=== PATIENT | male | born 1955 | race Caucasian/White ===

== ENCOUNTER → 2022-02-07 17:31 | Outpatient (CLI) | payer MEDICARE, SELFPAY ==
--- NOTE | ~2022-02-07 | XR_ITS ---
EXAM: XR abdomen/kub 1V DATE: 02/07/2022 17:42 HISTORY: R31.9 - Hematuria, unspecified . COMPARISON: None available. FINDINGS: Normal bowel gas pattern. No organomegaly. Multiple bladder calculi. Degenerative lumbar a nd bilateral hip change. IMPRESSION: Multiple bladder calculi. Reviewed, dictated and finalized at location K. IMPRESSION: Multiple bladder calculi.
== END ==
PROVIDERS: PCP Family Medicine; Visit Provider Family Medicine
DX: R31.9 Hematuria, unspecified (principal)
CPT/HCPCS: 74018

== ENCOUNTER 2022-02-16 13:26 | Outpatient (CLI) | payer MEDICARE, SELFPAY ==
--- NOTE | ~2022-02-16 | XR_ITS ---
EXAM: XR abdomen/kub 1V DATE: 02/16/2022 13:43 HISTORY: GROSS HEMATURIA . COMPARISON: 02/07/2022. FINDINGS: Clear lung bases. Normal bowel gas pattern. No organomegaly. Multiple bladder calculi, per haps slightly reduced in number. Regional bones and soft tissues normal for age. IMPRESSION: Multiple bladder calculi. Reviewed, dictated and finalized at location K. IMPRESSION: Multiple bladder calculi.
--- NOTE | ~2022-02-16 | CT_ITS ---
EXAMINATION: CT abdomen pelvis wo/w con DATE: 02/16/2022 14:06 INDICATION: Gross hematuria EXAMINATION: CT abdomen pelvis wo/w con DATE: 02/16/2022 14:06 INDICATION: Gross hematuria TECHNIQUE: Computed tomography (CT) of the abdomen and pelvis was performed without intravenous contr ast. CT of the abdomen and pelvis was then performed with a total of 130 mL Omnipaque-350 intravenous contrast using a double-bolus technique for simultaneous opacification of the renal parenchyma and r enal collecting system. Automated exposure control and iterative reconstruction technique were employ ed. The dose-length product was 1969.14 mGy-cm. COMPARISON: None FINDINGS: CT UROGRAM: Lung bases are clear. Heart size is normal. No pericardial or pleural effusion. Liver, gallbladder, s pleen, pancreas and bilateral adrenal glands are normal. 10 cm Bosniak 2 cyst with single thin undergraduate internship al septation and minimal peripheral rim calcification. A couple additional subcentimeter right renal cyst. Small region of cortical scarring at the interpolar region of the right kidney. Approximately 1 7 stones within the bladder measuring 6-10 mm. There is diffuse wall thickening of the partially deco mpressed bladder. No stones in either kidney or ureter. Prostatomegaly measuring 5.3 x 4.5 cm. A coup le sigmoid diverticula without adjacent inflammatory change to suggest diverticulitis. Small bowel an d appendix are normal. No free intraperitoneal gas or fluid. No pathologically enlarged abdominal or pelvic lymphadenopathy. Mild right and mild to moderate left hip osteoarthritis. Mild to moderate lum bar or thoracic spondylosis. IMPRESSION: 1. Multiple bladder stones. No more proximal ureterolithiasis of the kidneys or ureters. 2. Diffuse bladder wall thickening which could be related to either cystitis or chronic outlet obstru ction from the enlarged prostate. Reviewed, dictated and finalized at location B. IMPRESSION: 1. Multiple bladder stones. No more proximal ureterolithiasis of the kidneys or ureters. 2. Diffuse bladder wall thickening which could be related to either cystitis or chronic outlet obstruction from the enlarged prostate.
[2022-02-16 13:52] LABS: Estimated Glomerular Filt Rate > 60
== END 2022-02-16 13:27 | disposition home or self-care (01) ==
PROVIDERS: PCP Family Medicine; Visit Provider Nurse Practitioner Adult Health
DX: R31.0 Gross hematuria (principal); N21.0 Calculus in bladder
CPT/HCPCS: 74018; 74178; Q9967

== ENCOUNTER 2022-03-14 07:38 | Outpatient (CLI) | payer MEDICARE, SELFPAY ==
--- NOTE | 2022-03-14 07:46 | ECG_ITS ---
Measurements Intervals [place] Rate: 77 P: 31 [place]: 178 QRS: 9 QRSD: 89 T: 8 QT: 351 QTc: 399 Interpretive Statements SINUS RHYTHM BASELINE ARTIFACT- I, II, III, AVR, AVL, AVF NORMAL ECG Electronically Signed On 03-14-2022 9:17:06 CDT by Demetri Martinez D.O.
== END 2022-03-14 07:39 | disposition home or self-care (01) ==
PROVIDERS: PCP Family Medicine; Visit Provider Urology
DX: I10 Essential (primary) hypertension (principal); Z01.818 Encounter for other preprocedural examination
CPT/HCPCS: 93005

== ENCOUNTER 2022-03-17 01:53 | Day surgery (SDC) | payer MEDICARE, SELFPAY ==
[2022-03-10 15:01] VITALS: BMI 28.1
--- NOTE | 2022-03-10 15:11 | PC.NURSE ---
Report to the Outpatient Waiting Room, entrance under the green pavilion located off [facility], at time _0815_ on date _03/17/22_. OR Time: _1015_. - You and your visitor will be asked a series of questions to screen for COVID 19 for your protection. - Only one visitor is allowed at this time. - The patient visitor is requested to leave or wait in car when not with patient. - A mask is required within the hospital. Patients may have clear liquids (water, carbonated beverages, clear teas, apple juice) until 3 hours prior to surgery (0715 AM) with a maximum of 20 ounces. - No food from midnight until time of surgery Take the following medications with a SIP of water the morning of surgery: _NONE_ Medications to discontinue per physician __N/A_, Date to take last dose Please no make-up, nail czech, hairspray, perfume, deodorant, or body powder the day of surgery. No jewelry (including any body piercings) or valuables the day of surgery, leave them at home. Please take a shower or bath the night before, or the morning of, surgery with an antibacterial soap. Wear comfortable, loose fitting clothing. - Jewelry must be removed prior to entering the operating room. Rings and piercings that are not removed may be cut off. - The hospital will not accept responsibility for valuables. - Please leave all valuables, including medications, at home the day of surgery. If you are going home after surgery, a licensed funeral driver must drive you home. - NO public transportation without another adult. - We recommend that an adult stay with you for 24 hours following discharge. - We also recommend that you do not drive, make important decision, drink alcoholic beverages, or take any drugs that were not prescribed by your health care provider for at least 24 hours after your discharge time. Follow any additional instructions given to you from your surgeon. If you or anyone in your household have experienced Covid symptoms in the past week, please notify your surgeon or the nurse liaison at the phone number below for possible testing. Telephone instructions given to PT and asked if any additional questions and then verbalized understanding. Patient advised to call surgeon office or pre surgery nurse liaison [phone] if any additional questions.
--- NOTE | 2022-03-14 07:07 | PM.HPGS ---
History of Present Illness History of Present Illness Consent: Risks, benefits, and alternatives have been discussed and questions answered. Patient agrees to proceed with procedure. Chief complaint: Bladder Stones Narrative: Raymond Ch II is a 66 year old male recently underwent evaluation for gross hematuria. CT scan of the abdomen and pelvis with without contrast showed normal upper urinary tracts but multiple calculi in his bladder. He has been started on combination therapy for BPH and elects for cystoscopy with laser lithotripsy and bladder stone extraction. He is aware the risk of this procedure including, but not limited to, adverse cardiopulmonary events, hematuria, bladder injury and need for repeat procedures. Review of Systems Cardiovascular: Cardiovascular: Denies chest pain, Denies lightheadedness, Denies palpitations and Denies dyspnea Respiratory: Respiratory: Denies dyspnea Gastrointestinal: Gastrointestinal: Denies diarrhea, Denies nausea and Denies vomiting Genitourinary: Genitourinary: Denies hematuria and Denies dysuria Endocrine: Endocrine: Denies palpitations [facility] Past Medical History Medical History (Updated 03/14/22 @ 07:08 by Estuardo Xie MD) Elevated glucose Hepatitis C antibody test negative (~10/2016) Prediabetes Family History Family History Mother Father Patient's father is , Onset Age: 90 Social History Social History (Updated 11/24/21 @ 08:42 by Ree Macario [facility]) Smoking status: Never smoker Second hand tobacco smoke exposure: No Alcohol intake: current Drinks per week: 2 Substance use: never Substance use type: does not use Spiritual care concerns: No Meds Home Medications and Allergies Home Medications Medication Instructions Recorded Confirmed Type lisinopril 10 mg tablet See Rx Instructions .Route 10/04/21 03/10/22 Rx .COMPLEX #90 tabs tamsulosin 0.4 mg capsule 0.4 mg PO QHS #90 caps 12/24/21 03/10/22 Rx simvastatin 5 mg tablet See Rx Instructions .Route 01/17/22 03/10/22 Rx .COMPLEX #90 tabs finasteride 5 mg tablet 1 tablet HS 03/10/22 03/10/22 History Allergies Allergy/AdvReac Type Severity Reaction Status Date / Time No Known Allergies Allergy Verified 03/10/22 15:00 Exam Const: General: no acute distress Resp: Effort & Inspection: normal respiratory effort GI: Inspection: non-distended GI Palp: No abdominal tenderness and No Guarding due to palpation present (GI) Auscultation: normal bowel sounds Assessment and Plan Assessment and plan (1) Hematuria: Code(s): R31.9 - Hematuria, unspecified Status: Acute (2) Bladder stones: Code(s): N21.0 - Calculus in bladder Status: Acute Assessment and Plan: Cystoscopy, laser lithotripsy with extraction of multiple bladder calculi
[2022-03-17] VITALS (8 sets, daily range): BP systolic 128–164; BP diastolic 75–86; PULSE 66–76; RESP 11–20; TEMP 36.1–36.3; O2SAT 95–100
--- NOTE | 2022-03-17 06:41 | WPDHPUPDATE1 ---
History and Physical Update Update Date/Time: 03/17/22 06:41 History and Physical has been reviewed, including an updated exam of the patient. There are NO changes in the patient's condition. Risks, benefits, and alternatives have been discussed and questions answered. Patient agrees to proceed with procedure.
[2022-03-17] MEDS: LACTATED RINGERS 1,000 ML 30 ML IV CONT (08:48)
--- NOTE | 2022-03-17 09:24 | P.PNAN_ITS ---
Anes - Initial Pre Proc Eval Procedure: Operation Date: 03/17/22 10:15 Proposed Procedures p Cystolitholapaxy - Estuardo Xie MD Date/Time: 03/17/22 09:24 Surgeon: Estuardo Xie MD Pre Op Diagnosis: Bladder Stones Patient Data Age: 66 Gender: M Height: 1.78 m Weight: 89.7 kg Last Vital Signs Temp 36.3 C L 03/17/22 08:21 Pulse 73 03/17/22 08:21 Resp 18 03/17/22 08:21 BP 164/83 H 03/17/22 08:21 Pulse Ox 100 03/17/22 08:21 O2 Del Method Room Air 03/17/22 08:21 Allergies Allergy/AdvReac Type Severity Reaction Status Date / Time No Known Allergies Allergy Verified 03/17/22 08:31 Home Medications Medication Instructions Recorded Confirmed Type lisinopril 10 mg tablet See Rx Instructions .Route 10/04/21 03/17/22 Rx .COMPLEX #90 tabs tamsulosin 0.4 mg capsule 0.4 mg PO QHS #90 caps 12/24/21 03/17/22 Rx simvastatin 5 mg tablet See Rx Instructions .Route 01/17/22 03/17/22 Rx .COMPLEX #90 tabs finasteride 5 mg tablet 1 tablet HS 03/10/22 03/17/22 History Patient hx anesthesia problems: none Family hx anesthesia problems: none Results Review: All pre-operative results and documents have been reviewed as part of the pre- operative evaluation. REPLACED BY [facility] Past Medical History Medical History Hyperlipemia Hypertension Family History Family History Mother Father Patient's father is , Onset Age: 90 Social History Social History Second hand tobacco smoke exposure: No Alcohol intake: current Drinks per week: 2 Substance use: never Substance use type: does not use Living arrangements: with family Spiritual care concerns: No Anes - Eval Final PreProcedure Day of Procedure 03/17/22 09:24 Patient weight: overweight Heart: regular rate and rhythm Lungs: clear to auscultation Airway: Mallampati scale class II Neurological: alert and oriented Last oral intake: >/= 8 hours ASA classification: II Emergent: no Anesthetic plan: proceed Anesthesia type and monitoring: general LMA and standard monitoring Results Review: All pre-operative results and documents have been reviewed as part of the pre-operative evaluation. Informed Consent: The patient's anesthetic plan and its attendant risks and benefits were discussed with the patient/family/POA. Questions were solicited and answers provided to the satisfaction of the patient/family/POA.
[2022-03-17] MEDS: ceFAZolin 2 GM/D5W 50 ML 2 GM/50 ML BAG IVPB (09:58)
--- NOTE | 2022-03-17 10:39 | W.PM.PROC2 ---
Procedure Note - Detailed Date of Procedure 03/17/22 Pre-op Diagnosis Bladder Stones, BPH Post-op Diagnosis Same Procedure Performed Cystoscopy with extraction of multiple bladder stones Surgeon Estuardo Xie MD Description of Procedure patient is brought the op suite where he was prepped draped in routine sterile fashion while in the dorsal lithotomy position after the uneventful induction of a general LMA anesthetic. His external urethral meatus is dilated from 20-30 F. A 27 F resectoscope sheath was placed in his bladder. He has lateral lobe hyperplasia without significant median lobe enlargement. Prostatic urethra measures 2.5-3 cm in length. Bladder mucosa is normal without hyperemia. There was no intravesical neoplasm but he does have multiple small smooth bladder calculi measuring probably 6-7 mm in size. Was able to extract all these stones, 1 x 1, using a loop electrode. The removal was uncomplicated without trauma to the urethra. A total of 21 stones removed. The termination there were no residual stones left. I did place a 20 F Juares catheter which I intend take out before he goes home. He tolerated the procedure well was taken recovery room good condition. Drains No Packing No Pathology Yes Complications No immediate complications Condition Stable
== END 2022-03-17 12:25 | disposition home or self-care (01) ==
PROVIDERS: PCP Family Medicine; Visit Provider Urology
PROC: 0TCB8ZZ Extirpation of Matter from Bladder, Via Natural or Artificial Opening Endoscopic (ICD-10-PCS; CPT 52352; principal; 2022-03-17 10:15)
DX: N21.0 Calculus in bladder (principal); N40.0 Benign prostatic hyperplasia without lower urinary tract symptoms; I10 Essential (primary) hypertension; E78.5 Hyperlipidemia, unspecified
CPT/HCPCS: 52310; 82365; 88300; 93005; A9270; J0690; J1100; J2250; J2405; J2704; J3010; J7120

== ENCOUNTER → 2022-10-10 08:25 | Outpatient (CLI) | payer MEDICARE, SELFPAY ==
--- NOTE | ~2022-10-10 | XR_ITS ---
EXAMINATION: XR abdomen/kub 1V INDICATION: Calculus of the urinary bladder TECHNIQUE: Supine views of the abdomen were obtained on 2 radiographs. COMPARISON: 02/16/2022 FINDINGS: No definite urolithiasis is identified. The bowel gas pattern is normal. Again noted is an enlarged contour of the left kidney reflective of a large left kidney cyst. There is moderate osteoar thritis of the hips. A moderate volume of colonic stool is present. IMPRESSION: 1. No definite urolithiasis identified. Reviewed, dictated and finalized at location B. [employer]KEEPER
== END ==
PROVIDERS: PCP Family Medicine; Visit Provider Urology
DX: N21.0 Calculus in bladder (principal)
CPT/HCPCS: 74018

== ENCOUNTER 2024-10-16 07:29 | Outpatient (CLI) | payer MEDICARE, SELFPAY ==
--- NOTE | ~2024-10-16 | XR_ITS ---
XR abdomen/kub 1V 10/16/2024 07:40 INDICATION: Bladder stone TECHNIQUE: KUB COMPARISON: None FINDINGS: Bowel gas pattern is normal. There is no evidence of free air, mass, organomegaly, ascites or obstruction. No abnormal calculi are seen. The bones appear intact. Mild dextroscoliosis of the lumbar spine. Mild lumbar spondylosis. IMPRESSION: 1: No acute abdominal abnormality identified. Reviewed, dictated and finalized at location B. [employer]
== END 2024-10-16 07:30 | disposition home or self-care (01) ==
LOC: MICIMG 07:31
PROVIDERS: PCP Family Medicine; Visit Provider Physician Assistant
DX: N21.0 Calculus in bladder (principal)
CPT/HCPCS: 74018

== ENCOUNTER 2025-02-06 15:43 | Outpatient (CLI) | payer MEDICARE, SELFPAY ==
--- NOTE | ~2025-02-06 | XR_ITS ---
Cervical Spine: AP, lateral, oblique, open-mouth views Clinical History: Pain Findings: There is mild reversal of the normal cervical lordosis. No fracture or sublocation. There i s advanced degenerative disc narrowing at C4-C5, C5-C6, and C6-C7. Mild facet joint degenerative mendoza ges are present. No instability evident on flexion or extension. Pre-vertebral soft tissues are unrem arkable. Impression: Moderate degenerative spondylosis of the lower cervical spine, as above, with mild reversal of the no rmal cervical lordosis. Reviewed, dictated and finalized at location M. Impression: Moderate degenerative spondylosis of the lower cervical spine, as above, with m ild reversal of the normal cervical lordosis.
== END 2025-02-06 15:44 | disposition home or self-care (01) ==
LOC: GOSHIMG 15:43
PROVIDERS: PCP Family Medicine; Visit Provider Family Medicine
DX: M47.892 Other spondylosis, cervical region (principal)
CPT/HCPCS: 72052